=== PATIENT | male | born 1980 | race African-American/Black ===

== ENCOUNTER 2021-07-26 17:37 | Emergency (ER) | payer OTHER ==
[~2021-07-26] VITALS: Ht 172.7 cm; Wt 78.0 kg
[2021-07-26 17:42] VITALS: BP 135/82
[2021-07-26] MEDS ORDERED: IBUPROFEN 400MG TABLET PO ONE (18:00)
== END 2021-07-26 19:41 | disposition home or self-care (01) ==
LOC: ER 17:37
DX: Z02.79 Encounter for issue of other medical certificate (principal); I49.8 Other specified cardiac arrhythmias
CPT/HCPCS: 71045; 93005; 99283